=== PATIENT | male | born 1995 ===

== ENCOUNTER 2018-01-22 16:00 | Emergency (ER) | payer OTHER ==
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
[2018-01-22] MEDS ORDERED: Ketorolac 30 MG/ML SDV IM ONE (17:30)
[2018-01-22] MEDS ORDERED: Ondansetron 4 MG Tab.DIS PO ONE (17:30)
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
== END 2018-01-22 18:18 | disposition home or self-care (01) ==
LOC: JP.ED 16:00
DX: F07.81 Postconcussional syndrome (principal); Z79.899 Other long term (current) drug therapy; E03.9 Hypothyroidism, unspecified
CPT/HCPCS: 70450; 72100; 96372; 99284; A9270; J1885